=== PATIENT | male | born 1950 | race Caucasian/White ===

== ENCOUNTER → 2017-11-30 | Outpatient (CLI) | payer OTHER ==
--- NOTE | 2017-11-30 16:40 | DIREP ---
PROCEDURE:US KIDNEYS-BILAT COMPARISON:None. INDICATIONS:CKD3, htn TECHNIQUE:Ultrasound examination was performed of the kidneys and bladder. FINDINGS: RIGHT KIDNEY:10.8 x 4.5 x 5.0 cm. Cortex: 1.1 cm LEFT KIDNEY:10.6 x 4.4 x 4.8 cm. Cortex: 1.6 cm BLADDER PRE VOID:7.6 x 6.2 x 6.4 cm. Volume: 212.1 ml BLADDER POST VOID:3.2 x 2.2 x 1.7 cm. Volume: 6.3 ml RIGHT KIDNEY: Normal. No hydronephrosis. A pelvic cyst is noted measuring 1.8 x 1.4 x 1.3 cm. LEFT KIDNEY: Normal. No hydronephrosis. BLADDER:Diffuse bladder wall thickening versus artifact underdistention. OTHER:Negative. CONCLUSION:Right pelvic cyst and diffuse bladder wall thickening versus artifact of underdistention. Dictated by: RU Physician on 11/30/2017 at 04:05 PM ld
== END | disposition home or self-care (01) ==
LOC: RAD 13:56
DX: I12.9 Hypertensive chronic kidney disease with stage 1 through stage 4 chronic kidney disease, or unspecified chronic kidney disease (principal); N18.3 Chronic kidney disease, stage 3 (moderate)
CPT/HCPCS: 76770